=== PATIENT | female | born 1990 ===

== ENCOUNTER 2019-10-04 13:54 | Emergency (ER) | payer SELFPAY ==
--- NOTE | 2019-10-04 15:03 | NUR ---
PT HERE WANTING A REFERAL FOR OB SERVICED, PT STATES THAT HER EDC IS IN APRIL 2020 DENIES ANY CRAMPING, SPOTTING OR HEAVY BLEEDING. PT INFORMED THAT WE WOULD BE HAPPY TO SEE HER, BUT IT WILL BE A WAIT. PT STATED UNDERSTANDING AND ASKS IF WE COULD GIVE HER A REFERRAL TO ANY OB/GYNS IN THE AREA. PT WAS GIVEN NAME AND PHONE # OF [facility]. PT WAS ADVISED TO RETURN TO THE ER SHOULD SHE HAVE ANY DIFFICULTIES OR CONCERNS AND WE WOULD BE HAPPY TO ASSIST HER.
== END 2019-10-04 15:19 | disposition left against medical advice (07) ==
LOC: ER 13:55
DX: O26.90 Pregnancy related conditions, unspecified, unspecified trimester (principal); Z53.21 Procedure and treatment not carried out due to patient leaving prior to being seen by health care provider